=== PATIENT | female | born 1965 | race African-American/Black ===

== ENCOUNTER → 2019-07-15 | Outpatient (CLI) | payer OTHER ==
[~2019-07-15] MED LIST: ASPI-555 PO; ATEN50TA PO; ATOR40TA71 PO; DULO60CA64 PO; GLIM1TAB18 PO; SITA1TBM PO; VALS160T29 PO
== END | disposition home or self-care (01) ==
LOC: RAH 14:29
PROVIDERS: ATTEND Physical Medicine & Rehabilitation
DX: M48.02 Spinal stenosis, cervical region (principal); M54.12 Radiculopathy, cervical region
CPT/HCPCS: 72141

== ENCOUNTER → 2020-03-29 | Outpatient (CLI) | payer OTHER ==
[~2020-03-29] MED LIST changes: -ASPI-555 PO; +ASPI-556 PO
== END | disposition home or self-care (01) ==
LOC: RAH 08:00
PROVIDERS: ATTEND Physical Medicine & Rehabilitation
DX: M17.12 Unilateral primary osteoarthritis, left knee (principal); M43.16 Spondylolisthesis, lumbar region; M23.307 Other meniscus derangements, unspecified meniscus, left knee; M47.816 Spondylosis without myelopathy or radiculopathy, lumbar region; M48.061 Spinal stenosis, lumbar region without neurogenic claudication
CPT/HCPCS: 72110; 73562

== ENCOUNTER → 2020-04-25 | Outpatient (CLI) | payer OTHER | END | disposition home or self-care (01) | LOC: RAH 07:36 | PROVIDERS: ATTEND Physical Medicine & Rehabilitation | DX: M48.061 Spinal stenosis, lumbar region without neurogenic claudication (principal); M43.16 Spondylolisthesis, lumbar region; M54.16 Radiculopathy, lumbar region | CPT/HCPCS: 72148 ==

== ENCOUNTER → 2023-02-02 | Outpatient (CLI) | payer OTHER | END | disposition home or self-care (01) | LOC: RAH 10:00 | PROVIDERS: ATTEND Physical Medicine & Rehabilitation | DX: M48.062 Spinal stenosis, lumbar region with neurogenic claudication (principal); M43.16 Spondylolisthesis, lumbar region; M54.16 Radiculopathy, lumbar region; Z88.0 Allergy status to penicillin; Z88.1 Allergy status to other antibiotic agents; Z91.013 Allergy to seafood | CPT/HCPCS: 72114; 72148 ==